=== PATIENT | female | born 1950 | race Caucasian/White ===

== ENCOUNTER 2022-06-25 15:40 | Emergency (ER) | payer OTHER, MEDICAID ==
[~2022-06-25] VITALS: Ht 154.9 cm; Wt 98.9 kg
[2022-06-25 15:46] VITALS: BP_SYST 137
--- NOTE | 2022-06-25 15:58 | NUR ---
COVID AND FLU SWAB COLLECTED AND SENT TO LAB
--- NOTE | 2022-06-25 16:00 | NUR ---
Pt brought by self, A&Ox4, pt presents to ER with cough, congestion x 3 days, pt also c/o pain on coccyx after falling on buttocks couple days ago, skin pink and warm, cap refill <3, VSS.
--- NOTE | 2022-06-25 16:25 | NUR ---
Dr No evaluating patient in the triage room
[2022-06-25] MEDS ORDERED: KETOROLAC TROMETHAMINE 60 MG/2 ML VIAL IM ONE (17:00)
[2022-06-25] MEDS ORDERED: TRAM50TA2 PO (18:32)
[2022-06-25] MEDS ORDERED: IBUP-1969 PO (18:32)
[2022-06-25] MEDS ORDERED: ZIT250 PO (18:32)
[2022-06-25] MEDS ORDERED: PHEDM120 PO (18:32)
[2022-06-25 18:38] VITALS: BP_SYST 137
--- NOTE | 2022-06-25 18:39 | NUR ---
Patient given written and verbal discharge instructions and verbalizes understanding. ER MD discussed with patient the results and treatment provided. Patient in stable condition. ID arm band removed. Rx of Zithromax, Tramadol, Ibuprofen given. Patient educated on pain management and to follow up with PMD. Pain Scale 2/10. Opportunity for questions provided and answered. Medication side effect fact sheet provided.
== END 2022-06-25 18:38 | disposition home or self-care (01) ==
LOC: SED 15:40
DX: S39.92XA Unspecified injury of lower back, initial encounter (principal); J40 Bronchitis, not specified as acute or chronic; Z88.6 Allergy status to analgesic agent; Z79.899 Other long term (current) drug therapy; Z20.822 Contact with and (suspected) exposure to COVID-19; W18.39XA Other fall on same level, initial encounter; Y93.89 Activity, other specified; Y92.89 Other specified places as the place of occurrence of the external cause; Y99.8 Other external cause status
CPT/HCPCS: 99285; 71045; 87426; 93005; 72220; 96372; 87804 ×2; J1885; 36415

== ENCOUNTER 2022-11-19 18:28 | Emergency (ER) | payer OTHER, MEDICAID ==
[~2022-11-19] VITALS: Ht 157.5 cm; Wt 98.0 kg
[~2022-11-19 18:28] MED LIST: IBUP-1969 PO; PHEDM120 PO; TRAM50TA2 PO; ZIT250 PO
[2022-11-19 18:37] VITALS: BP_SYST 145
[2022-11-19 19:04] LABS: BILIRUBIN,URINE NEGATIVE (NEGATIVE); BLOOD, URINE NEGATIVE (NEGATIVE); CLARITY/URINE CLEAR (CLEAR); COLOR,URINE YELLOW (YELLOW); GLUCOSE,URINE NEGATIVE (NEGATIVE); KETONES,URINE NEGATIVE (NEGATIVE); LEUKOCYTE ESTERASE ,URINE NEGATIVE (NEGATIVE); NITRITE, URINE NEGATIVE (NEGATIVE); PH,URINE 5.5 (5.0-8.0); PROTEIN URINE NEGATIVE (NEGATIVE); UROBILINOGEN,URINE 0.2 (0.2-1.0)
[2022-11-19 19:53] LABS: BASOPHILS # (AUTO) 0.1 K/uL (0.0-0.2); BASOPHILS % (AUTO) 1.7 % (0.0-2.0); EOSINOPHILS # (AUTO) 0.1 K/uL (0.0-0.4); EOSINOPHILS % (AUTO) 3.4 % (0.0-4.0); LYMPHOCYTES # (AUTO) 1.4 K/uL (1.0-5.5); LYMPHOCYTES % (AUTO) 38.3 % (20.5-51.5); MEAN CORPUSCULAR HEMOGLOBIN 35 pg (27-31); MEAN CORPUSCULAR HGB CONC 34 % (32-36); MEAN CORPUSCULAR VOLUME 101 fL (79.0-98.0); MONOCYTES # (AUTO) 0.2 K/uL (0.0-1.0); MONOCYTES % (AUTO) 6.5 % (1.7-9.3); NEUTROPHILS # (AUTO) 1.9 K/uL (1.8-7.7); NEUTROPHILS % (AUTO) 50.1 % (40.0-70.0); PLATELET COUNT (AUTO) 358 K/uL (130-430); RED BLOOD CELL COUNT(AUTO) 3.77 MIL/uL (4.2-6.2); WHITE BLOOD COUNT (AUTO) 3.7 K/uL (4.8-10.8)
[2022-11-19 20:25] LABS: ALANINE AMINOTRANSFERASE 19 U/L (12-78); ALBUMIN 3.3 g/dL (3.4-4.8); ANION GAP 6 (5-15); ASPARTATE AMINOTRANSFERASE 18 U/L (10-37); CALCIUM 9.1 mg/dL (8.4-11.0); CHLORIDE 105 mmol/L (98-107); CREATININE 0.78 mg/dL (0.55-1.30); GLUCOSE 112 mg/dL (70-99); TOTAL BILIRUBIN 0.8 mg/dL (0.0-1.0); UREA NITROGEN, BLOOD 18 mg/dL (8-21)
[2022-11-19 20:34] LABS: THYROID STIMULATING HORMONE 0.49 uIu/mL (0.36-3.74)
[2022-11-19] MEDS ORDERED: ONDA-8 TL (21:13)
[2022-11-19 21:18] VITALS: BP_SYST 132
== END 2022-11-19 21:19 | disposition home or self-care (01) ==
LOC: SED 18:28
DX: N81.10 Cystocele, unspecified (principal); R39.15 Urgency of urination; R32 Unspecified urinary incontinence; Z88.6 Allergy status to analgesic agent; Z79.899 Other long term (current) drug therapy
CPT/HCPCS: 36415; 80053; 81003; 84443; 85025; 99283